=== PATIENT | male | born 1990 | race Caucasian/White ===

== ENCOUNTER → 2018-07-15 10:50 | Outpatient (CLI) | payer OTHER, SELFPAY | PROVIDERS: PCP Family Medicine; Visit Provider Family Medicine | DX: R20.0 Anesthesia of skin (principal) | CPT/HCPCS: 95886; 95911 ==

== ENCOUNTER → 2023-03-28 12:03 | Outpatient (CLI) | payer OTHER, SELFPAY ==
--- NOTE | 2023-03-28 | DI.MRI.S_ITS ---
PROCEDURE: MR LUMBAR SPINE WO CON INDICATIONS: intervertebral disc disorders, lumbar region TECHNIQUE: Noncontrast sagittal T1 spin echo and T2 fast echo, sagittal STIR, and T2 fast spin echo through the lumbar spine. In cases with scoliosis, additional coronal T2 fast spin echo may be performed. COMPARISON: [facility], MR, L-SPINE WITHOUT CONTRAST, 12/08/2017, 18:37. FINDINGS: Image quality: Excellent. Alignment and Curvature: There is normal bony alignment. Bone Marrow: Marrow is of normal overall signal. No acute vertebral body compression fractures. Spinal Cord: Conus medullaris terminates at the L1 level. Visualized cord demonstrates normal signal and size. Paraspinous Soft Tissues: No paravertebral masses. T12-L1: Mild disc desiccation and height loss. Broad-based disc bulge. No canal stenosis. No foraminal stenosis. These findings are unchanged from the study dated December 08, 2017. L1-L2: Mild disc desiccation and height loss. Broad-based disc bulge. No canal stenosis. No foraminal stenosis. Findings are unchanged. L2-L3: Disc height is preserved. No canal stenosis. No foraminal stenosis. Findings are unchanged. L3-L4: Mild disc bulge and mild facet and ligamentum flavum hypertrophy. The previously visualized left paracentral disc bulge is no longer present. There is a small posterior focal high-intensity zone. No canal stenosis. No foraminal stenosis. L4-L5: Mild disc desiccation and height loss. Broad-based disc bulge. Moderate facet ligamentum flavum hypertrophy. No canal stenosis. No foraminal stenosis. There is a small posterior focal high-intensity zone. L5-S1: Mild disc desiccation and height loss. No canal stenosis. Mild right and moderate left foraminal stenosis. These findings are unchanged from the prior study. IMPRESSION: 1. Previously visualized left paracentral L3-4 disc bulge is no longer present. 2. No significant canal stenosis of the lumbar spine. 3. Moderate left L5-S1 foraminal stenosis similar to the prior study. 4. 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 Dictated by: Sheryl Stallings M.D. on 03/30/2023 at 9:11 Approved by: Sheryl Stallings M.D. on 03/30/2023 at 9:36
== END ==
PROVIDERS: PCP Family Medicine; Referring Provider Family Medicine; Visit Provider Family Medicine
DX: M47.26 Other spondylosis with radiculopathy, lumbar region (principal); M48.07 Spinal stenosis, lumbosacral region; R20.2 Paresthesia of skin
CPT/HCPCS: 72148

== ENCOUNTER 2025-07-31 12:49 | Emergency (ER) | payer OTHER, SELFPAY ==
[2025-07-31 13:02] VITALS: BP 175/109; PULSE 89; RESP 14; TEMP 36.4; O2SAT 97; BMI 45.1
--- NOTE | 2025-07-31 13:34 | ED.PEDGIA ---
HPI - Pediatric GI <Marie Soto PA-C - Last Filed: 07/31/25 19:49> General Chief Complaint: Abdominal Pain Stated Complaint: Abd pain after working at [employer] Time Seen by Provider: 07/31/25 13:29 Source: patient Mode of arrival: Ambulatory History of Present Illness HPI narrative: Mr. Dunbar is a pleasant 34-year-old male with a past medical history of hypertension, lumbar herniated disc who presents to the emergency department for epigastric abdominal pain x1 day. Patient states he began a new job yesterday at [employer] that entails a lot of strenuous activity/heavy lifting. Throughout his shift he developed pain in the epigastric area of his abdomen that worsened as the day went on. He knows to in the evening that he had a large bulge in this area and it was very tender. Pain is exacerbated by moving, sitting, going from sitting to standing position. When he woke up this morning, pain was slightly improved but is still present. Pain is also associated with nausea. Patient reports that he has muscle soreness all over his body including his arms, his legs and also has some tightness in his left chest wall. He denies any substernal chest pain, shortness of breath, fevers, chills, vomiting, diarrhea, melena, bloody stool, dysuria, hematuria. No prior abdominal surgeries. Does report some mild straining with bowel movement this morning. Reports a history of alcohol use however over the last 2 years he drinks very infrequently and he also quit smoking 2 months ago. Denies any medication allergies. His PCP is Dr. Talbert, he does not take any antihypertensives. Related Data Home Medications ?Medication ?Instructions ?Recorded ?Confirmed No Known Home Medications 07/31/25 07/31/25 Allergies Allergy/AdvReac Type Severity Reaction Status Date / Time No Known Drug Allergies Allergy Unverified 07/31/25 13:12 Patient History <Marie Soto PA-C - Last Filed: 07/31/25 19:49> Social History Smoking Status: Former smoker Smoking Status: Former smoker Alcohol type: hard liquor Pediatric Exam <Marie Soto PA-C - Last Filed: 07/31/25 19:49> Narrative Physical exam: GENERAL: 34 year old patient appears stated age. Obese patient, in no acute distress. HEAD: Atraumatic. Normocephalic. EYES: No scleral icterus. No injection or drainage. NECK: Trachea midline. Cervical ROM intact. CARDIOVASCULAR: Regular rate and rhythm. RESPIRATORY: ?Nonlabored respirations. ?Speaking in clear, full sentences. ?Clear to auscultation. Breath sounds equal bilaterally. No wheezes, rales, or rhonchi. ? GASTROINTESTINAL: Tenderness to palpation of epigastric region of abdomen, no obvious bulging or hernia palpated. Mild tenderness to palpation of left lower quadrant. No rebound tenderness. Some guarding with deep palpation of epigastrium. Negative Louis's sign, negative McBurney's point tenderness. Bowel sounds present. EXTREMITIES: No LE edema. NEURO: AOx3. ?Clear speech. ?Moves all 4 extremities appropriately. SKIN: No rash or erythema of visible areas Initial Vital Signs Initial Vital Signs: Vital Signs Temperature 97.6 F 07/31/25 13:02 Pulse Rate 89 07/31/25 13:02 Respiratory Rate 14 07/31/25 13:02 Blood Pressure 175/109 H 07/31/25 13:02 Pulse Oximetry 97 07/31/25 13:02 Oxygen Delivery Method Room Air 07/31/25 13:02 <Rafia Hancock DO - Last Filed: 08/01/25 09:42> Initial Vital Signs Initial Vital Signs: Vital Signs Temperature 97.6 F 07/31/25 13:02 Pulse Rate 89 07/31/25 13:02 Respiratory Rate 14 07/31/25 13:02 Blood Pressure 175/109 H 07/31/25 13:02 Pulse Oximetry 97 07/31/25 13:02 Oxygen Delivery Method Room Air 07/31/25 13:02 Course <Marie Soto PA-C - Last Filed: 07/31/25 19:49> Orders Ordered: Discontinued Medications Sodium Chloride (Normal Saline 0.9%) 1,000 mls @ 1,000 mls/hr IV BOLUS ONE Stop: 07/31/25 14:46 Last Infusion: 07/31/25 15:12 Dose: Infused Documented By: Admin: 07/31/25 14:21 Dose: 1,000 mls/hr Documented By: ERICA Sodium Chloride (Normal Saline 0.9%) 1,000 mls @ 1,000 mls/hr IV BOLUS ONE Stop: 07/31/25 15:48 Last Infusion: 07/31/25 16:52 Dose: Infused Documented By: Admin: 07/31/25 15:13 Dose: 1,000 mls/hr Documented By: ERICA Ondansetron HCl (Ondansetron 4 Mg/2 Ml Inj) 4 mg IV NOW ONE Stop: 07/31/25 13:48 Last Admin: 07/31/25 14:21 Dose: 4 mg Documented By: ERICA Pantoprazole Sodium (Pantoprazole 40 Mg Vial) 40 mg IV NOW ONE Stop: 07/31/25 13:48 Last Admin: 07/31/25 14:21 Dose: 40 mg Documented By: ERICA Vital Signs Vital signs: Vital Signs - 8 hr 07/31/25 13:02 07/31/25 15:07 07/31/25 17:54 Temperature 97.6 F Pulse Rate 89 81 89 Respiratory Rate 14 16 12 Blood Pressure 175/109 H 144/87 H 145/97 H Pulse Oximetry 97 98 97 Oxygen Delivery Method Room Air Room Air Room Air 07/31/25 19:34 Temperature 97.7 F Pulse Rate 85 Respiratory Rate 18 Blood Pressure 149/96 H Pulse Oximetry 95 Oxygen Delivery Method Room Air <Rafia Hancock, - Last Filed: 08/01/25 09:42> Orders Ordered: Discontinued Medications Sodium Chloride (Normal Saline 0.9%) 1,000 mls @ 1,000 mls/hr IV BOLUS ONE Stop: 07/31/25 14:46 Last Infusion: 07/31/25 15:12 Dose: Infused Documented By: Admin: 07/31/25 14:21 Dose: 1,000 mls/hr Documented By: ERICA Sodium Chloride (Normal Saline 0.9%) 1,000 mls @ 1,000 mls/hr IV BOLUS ONE Stop: 07/31/25 15:48 Last Infusion: 07/31/25 16:52 Dose: Infused Documented By: Admin: 07/31/25 15:13 Dose: 1,000 mls/hr Documented By: ERICA Ondansetron HCl (Ondansetron 4 Mg/2 Ml Inj) 4 mg IV NOW ONE Stop: 07/31/25 13:48 Last Admin: 07/31/25 14:21 Dose: 4 mg Documented By: ERICA Pantoprazole Sodium (Pantoprazole 40 Mg Vial) 40 mg IV NOW ONE Stop: 07/31/25 13:48 Last Admin: 07/31/25 14:21 Dose: 40 mg Documented By: ERICA Vital Signs Vital signs: Vital Signs - 8 hr 07/31/25 13:02 07/31/25 15:07 07/31/25 17:54 Temperature 97.6 F Pulse Rate 89 81 89 Respiratory Rate 14 16 12 Blood Pressure 175/109 H 144/87 H 145/97 H Pulse Oximetry 97 98 97 Oxygen Delivery Method Room Air Room Air Room Air 07/31/25 19:34 Temperature 97.7 F Pulse Rate 85 Respiratory Rate 18 Blood Pressure 149/96 H Pulse Oximetry 95 Oxygen Delivery Method Room Air Medical Decision Making <Marie Soto PA-C - Last Filed: 07/31/25 19:49> Medical Records Medical records reviewed: Yes I reviewed the patient's medical records. Medical records narrative: Walk-in clinic visit today, was sent to ER Lab Data 07/31/25 14:03 07/31/25 14:03 Labs: Lab Results 07/31/25 07/31/25 Range/Units 14:03 16:58 WBC 6.0 (4.5-11.0) X10^3/uL RBC 4.63 (4.5-5.9) X10^6/uL Hgb 14.1 (13.5-17.5) g/dL Hct 41.6 (41-53) % MCV 89.9 (80-100) fL MCH 30.5 (26-34) PG MCHC 33.9 (30-36) % RDW 13.9 (11.6-14.8) % Plt Count 268 (150-400) X10^3/uL Neut % (Auto) 56.8 (50-75) % Lymph % (Auto) 28.4 (25-40) % Mathews % (Auto) 9.1 (3-14) % Eos % (Auto) 4.5 H (2-4) % Baso % (Auto) 1.2 (0-2) % Neut # (Auto) 3400 (3874-1073) /uL Lymph # (Auto) 1700 (5599-3101) /uL Mathews # (Auto) 500 (0-900) /uL Eos # (Auto) 300 (0-450) /uL Baso # (Auto) 100 (0-100) /uL Sodium 137 (137-145) mmol/L Potassium 3.7 (3.4-5.1) mmol/L Chloride 100 (98-107) mmol/L Carbon Dioxide 26 (22-32) mmol/L BUN 10 (9-20) mg/dL Creatinine 0.67 (0.66-1.25) mg/dL Estimated GFR > 60 (>60) mL/min BUN/Creatinine Ratio 14.9 (6-22) Glucose 94 (70-99) mg/dL Lactate 0.9 (0.7-2.1) mmol/L Calcium 9.1 (8.4-10.2) mg/dL Total Bilirubin 0.8 (0.2-1.3) mg/dL AST 83 H (17-59) IU/L ALT 105 H (<50) IU/L Alkaline Phosphatase 49 (38-126) U/L Total Creatine Kinase 904 H 704 H (55-170) U/L Troponin I < 0.012 (0.01-0.034) ng/mL Total Protein 8.2 (6.3-8.2) g/dL Albumin 4.8 (3.5-5.0) g/dL Globulin 3.4 (1.7-4.1) g/dL Albumin/Globulin Ratio 1.4 (1.0-2.8) Lipase 93 (23-300) U/L Urine Color Yellow Urine Appearance Clear Urine pH 6.0 (4.5-8.0) Ur Specific [place] 1.020 (1.000-1.035) Urine Protein Negative (Negative) Urine Glucose (UA) Negative (Negative) g/dL Urine Ketones 1+ H (NEGATIVE) Urine Occult Blood 1+ H (Negative) Urine Nitrate Negative (Negative) Urine Bilirubin Negative (NEGATIVE) Urine Urobilinogen 0.2 (0.2) E.U./dL Ur Leukocyte Esterase Negative (NEGATIVE) Urine RBC 1-5/hpf (0-5/HPF) Urine WBC None seen (0-5/HPF) Ur Squamous Epith Cells None seen (0-5/HPF) Urine Bacteria None seen (None) Ur Culture Indicated? Cult not indicated Vol Urine Centrifuged 10ml (spun) Imaging Data CT scan - abdomen/pelvis: Radiologist's Impression: PROCEDURE: CT ABDOMEN PELVIS W CON INDICATIONS: epigastric abd pain; concern hernia TECHNIQUE: After the administration of intravenous contrast, axial sections acquired from the lung bases to the pubic symphysis. Coronal and sagittal reformats were performed. For radiation dose reduction, the following was used: automated exposure control, adjustment of mA and/or kV according to patient size. COMPARISON: None. FINDINGS: Image quality: Diagnostic. Lower Chest: No significant findings. ABDOMEN: Liver: No solid mass. Moderate diffuse hepatic steatosis. Gallbladder: No radiopaque gallstones or wall thickening. Biliary ducts: No biliary dilation. Pancreas: No ductal dilation. Spleen: Size is within normal limits. Adrenal Glands: No adrenal nodules. Kidneys and Ureters: No hydronephrosis. No solid mass. No complex renal cystic lesion which requires follow up. Stomach and Bowel: Normal colonic caliber, without significant wall thickening. Sigmoid diverticulosis. Normal appendix. Peritoneum: No abnormal intraperitoneal fluid. No free air. Ventral Wall: No significant ventral hernia. Abdominal Nodes: No retroperitoneal or mesenteric adenopathy by size criteria. Vessels: Aorta and inferior vena cava are normal in size. PELVIS: Pelvic Organs: Unremarkable. Bladder: No bladder wall thickening, accounting for underdistention. Pelvic Nodes: No enlarged lymph nodes. Miscellaneous: No inguinal hernias are seen. Bones: No aggressive osseous abnormality. IMPRESSION: Moderate diffuse hepatic steatosis. No acute abdominal process. Sigmoid diverticulosis. Dictated by: Rajesh José M.D. on 07/31/2025 at 15:16 Approved by: Rajesh José M.D. on 07/31/2025 at 15:18 [facility] Narrative Medical decision making narrative: 34-year-old male with a past medical history of hypertension, lumbar herniated disc who presents to the emergency department for epigastric abdominal pain x1 day. Differential diagnosis includes but is not limited to hiatal hernia, supraumbilical hernia, cholecystitis, diverticulitis, colitis, gastritis or pancreatitis, abdominal wall muscle strain, sprain, diastasis recti, ACS, etc. On exam the patient is in no acute distress, nontoxic-appearing, all vital signs within normal limits except for elevated blood pressure of 175/109 in triage. Patient does have history of hypertension, does not take any medications. He has epigastric tenderness to palpation, reports large bulge in the abdomen last night that has since resolved with lying down and icing. No history of prior abdominal surgeries. He is also experiencing some chest wall soreness he reports since yesterday. Will obtain CBC, CMP, lipase, troponin, EKG, treat with fluids, Protonix, Zofran and obtain CT abdomen pelvis with IV contrast for further evaluation of abdominal pain. ECG reveals a rate of 80 beats per minute, QTC 447, regular rhythm. T wave inversions III, aVF. No prior EKG for comparison. Reviewed with Dr. Hancock. Labs reveal elevated CK 905, likely result of extreme muscle use yesterday while lifting at work. Negative/undetectable troponin. Elevated AST 83 ALT 105 however no baseline for comparison. Normal lactate 0.9. Normal renal function BUN 10 creatinine 0.67. Normal WBC count 6.0, hemoglobin 14.1 hematocrit 41.6. Sodium 137, potassium 3.7, glucose 94. Normal lipase 93. UA with 1+ ketones, 1+ blood, 1-5 RBCs. We will treat patient with second L of IV fluids. Patient's symptoms improved significantly. CT abdomen and pelvis reveals moderate diffuse hepatic steatosis, no acute abdominal process, sigmoid diverticulosis. Printed discussed all results with the patient. Recommended rest, avoid strenuous activity for the next week, increase hydration, follow up with PCP. Provided patient with L and I paperwork and work note. Discussed strict ED return precautions. Patient verbalized understanding of all information agreeable with the plan. He is stable for discharge home. <Rafia Hancock, DO - Last Filed: 08/01/25 09:42> Lab Data Labs: Lab Results 07/31/25 07/31/25 Range/Units 14:03 16:58 WBC 6.0 (4.5-11.0) X10^3/uL RBC 4.63 (4.5-5.9) X10^6/uL Hgb 14.1 (13.5-17.5) g/dL Hct 41.6 (41-53) % MCV 89.9 (80-100) fL MCH 30.5 (26-34) PG MCHC 33.9 (30-36) % RDW 13.9 (11.6-14.8) % Plt Count 268 (150-400) X10^3/uL Neut % (Auto) 56.8 (50-75) % Lymph % (Auto) 28.4 (25-40) % Mathews % (Auto) 9.1 (3-14) % Eos % (Auto) 4.5 H (2-4) % Baso % (Auto) 1.2 (0-2) % Neut # (Auto) 3400 (2230-7136) /uL Lymph # (Auto) 1700 (6741-2477) /uL Mathews # (Auto) 500 (0-900) /uL Eos # (Auto) 300 (0-450) /uL Baso # (Auto) 100 (0-100) /uL Sodium 137 (137-145) mmol/L Potassium 3.7 (3.4-5.1) mmol/L Chloride 100 (98-107) mmol/L Carbon Dioxide 26 (22-32) mmol/L BUN 10 (9-20) mg/dL Creatinine 0.67 (0.66-1.25) mg/dL Estimated GFR > 60 (>60) mL/min BUN/Creatinine Ratio 14.9 (6-22) Glucose 94 (70-99) mg/dL Lactate 0.9 (0.7-2.1) mmol/L Calcium 9.1 (8.4-10.2) mg/dL Total Bilirubin 0.8 (0.2-1.3) mg/dL AST 83 H (17-59) IU/L ALT 105 H (<50) IU/L Alkaline Phosphatase 49 (38-126) U/L Total Creatine Kinase 904 H 704 H (55-170) U/L Troponin I < 0.012 (0.01-0.034) ng/mL Total Protein 8.2 (6.3-8.2) g/dL Albumin 4.8 (3.5-5.0) g/dL Globulin 3.4 (1.7-4.1) g/dL Albumin/Globulin Ratio 1.4 (1.0-2.8) Lipase 93 (23-300) U/L Urine Color Yellow Urine Appearance Clear Urine pH 6.0 (4.5-8.0) Ur Specific [place] 1.020 (1.000-1.035) Urine Protein Negative (Negative) Urine Glucose (UA) Negative (Negative) g/dL Urine Ketones 1+ H (NEGATIVE) Urine Occult Blood 1+ H (Negative) Urine Nitrate Negative (Negative) Urine Bilirubin Negative (NEGATIVE) Urine Urobilinogen 0.2 (0.2) E.U./dL Ur Leukocyte Esterase Negative (NEGATIVE) Urine RBC 1-5/hpf (0-5/HPF) Urine WBC None seen (0-5/HPF) Ur Squamous Epith Cells None seen (0-5/HPF) Urine Bacteria None seen (None) Ur Culture Indicated? Cult not indicated Vol Urine Centrifuged 10ml (spun) Discharge Plan Departure Patient Disposition: Home Clinical Impression: Elevated CK, Myalgia, Hepatic steatosis, Diverticulosis Instructions: Abdominal Muscle Strain Activity Restrictions/Additional Instructions: Dear Mr. Dunbar, Thank you for coming to the emergency department. Today you were evaluated for abdominal pain. Your workup did not reveal a hernia or any intra-abdominal abnormality except chronic findings which we discussed, however your CK level was quite elevated which is a result of muscle damage from strenuous exercise. Please rest, increase hydration with water, and follow up with your primary care doctor for further evaluation. Please follow up with your primary care doctor within the next 2-3 days for ER follow-up. (If you do not have a PCP you can call [phone]. ?to schedule an appointment with an [facility] Primary Care Provider) IF YOU DEVELOP ANY NEW OR WORSENING SYMPTOMS, RETURN TO THE ER! Please read the attached instructions, they highlight more specific treatments and interventions for you at home. Thank you for letting me participate in your care, Marie Soto PA-C Prescriptions: No Action No Known Home Medications Referrals: Mio Talbert MD [Primary Care Provider, Family Practice] Stand Alone Forms: Patient Portal/API, Work Release Note ED Sign-out <Rafia Hancock, - Last Filed: 08/01/25 09:42> Cosign ED Attending [place] Attestation: I was available for consultation.
--- NOTE | 2025-07-31 13:47 | EKG_ITS ---
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
--- NOTE | 2025-07-31 13:48 | DI.CT.S_ITS ---
PROCEDURE: CT ABDOMEN PELVIS W CON INDICATIONS: epigastric abd pain; concern hernia TECHNIQUE: After the administration of intravenous contrast, axial sections acquired from the lung bases to the pubic symphysis. Coronal and sagittal reformats were performed. For radiation dose reduction, the following was used: automated exposure control, adjustment of mA and/or kV according to patient size. COMPARISON: None. FINDINGS: Image quality: Diagnostic. Lower Chest: No significant findings. ABDOMEN: Liver: No solid mass. Moderate diffuse hepatic steatosis. Gallbladder: No radiopaque gallstones or wall thickening. Biliary ducts: No biliary dilation. Pancreas: No ductal dilation. Spleen: Size is within normal limits. Adrenal Glands: No adrenal nodules. Kidneys and Ureters: No hydronephrosis. No solid mass. No complex renal cystic lesion which requires follow up. Stomach and Bowel: Normal colonic caliber, without significant wall thickening. Sigmoid diverticulosis. Normal appendix. Peritoneum: No abnormal intraperitoneal fluid. No free air. Ventral Wall: No significant ventral hernia. Abdominal Nodes: No retroperitoneal or mesenteric adenopathy by size criteria. Vessels: Aorta and inferior vena cava are normal in size. PELVIS: Pelvic Organs: Unremarkable. Bladder: No bladder wall thickening, accounting for underdistention. Pelvic Nodes: No enlarged lymph nodes. Miscellaneous: No inguinal hernias are seen. Bones: No aggressive osseous abnormality. IMPRESSION: Moderate diffuse hepatic steatosis. No acute abdominal process. Sigmoid diverticulosis. Dictated by: Rajesh José M.D. on 07/31/2025 at 15:16 Approved by: Rajesh José M.D. on 07/31/2025 at 15:18
[2025-07-31 14:12] LABS: Add Manual Diff / Slide Review NO; Hematocrit 41.6 % (41-53); Hemoglobin 14.1 g/dL (13.5-17.5); Lymphocytes Absolute Auto 1700 /uL (1100-4500); Mean Corpuscular HGB Conc 33.9 % (30-36); Mean Corpuscular Hemoglobin 30.5 PG (26-34); Mean Corpuscular Volume 89.9 fL (80-100); Platelet Count 268 X10^3/uL (150-400)
[2025-07-31] MEDS: SODIUM CHLORIDE 0.9% 1,000 ML 1000 ML IV ×2 (14:21→15:13)
[2025-07-31] MEDS: ONDANSETRON 4 MG/2 ML INJ IV (14:21)
[2025-07-31] MEDS: PANTOPRAZOLE 40 MG VIAL IV (14:21)
[2025-07-31 14:22] LABS: Appearance Urine UA CLEAR; Bilirubin Urine UA NEGATIVE (NEGATIVE); Color Urine UA YELLOW; Glucose Urine UA NEGATIVE (Negative); Ketones Urine UA 1+ (NEGATIVE); Lactate (Lactic Acid) 0.9 mmol/L (0.7-2.1); Leukocyte Esterase Urine UA NEGATIVE (NEGATIVE); Nitrite Urine UA NEGATIVE (Negative); Occult Blood Urine UA 1+ (Negative); Protein Urine UA NEGATIVE (Negative); Specific Gravity Urine UA 1.020 (1.000-1.035); Urobilinogen Urine UA 0.2 E.U./dL (0.2); pH Urine UA 6.0 (4.5-8.0)
[2025-07-31 14:23] LABS: Alanine Aminotransferase 105 IU/L (<50); Albumin 4.8 g/dL (3.5-5.0); Albumin Globulin Ratio 1.4 (1.0-2.8); Alkaline Phosphatase 49 U/L (38-126); Blood Urea Nitrogen 10 mg/dL (9-20); Calcium 9.1 mg/dL (8.4-10.2); Carbon Dioxide 26 mmol/L (22-32); Chloride 100 mmol/L (98-107); Creatine Kinase 904 U/L (55-170); Estimated Glomerular Filt Rate > 60 mL/min (>60); Globulin 3.4 g/dL (1.7-4.1); Glucose 94 mg/dL (70-99); HEMOLYSIS < 15 (0-50); Lipase 93 U/L (23-300); Potassium 3.7 mmol/L (3.4-5.1); Sodium 137 mmol/L (137-145); Total Protein 8.2 g/dL (6.3-8.2)
[2025-07-31 14:26] LABS: Culture Indicated Urine Cult Not Indicated
[2025-07-31 14:34] LABS: Troponin I < 0.012 ng/mL (0.01-0.034)
[2025-07-31 15:07] VITALS: BP 144/87; PULSE 81; RESP 16; O2SAT 98
[2025-07-31 17:21] LABS: Creatine Kinase 704 U/L (55-170)
[2025-07-31 17:54] VITALS: BP 145/97; PULSE 89; RESP 12; O2SAT 97
[2025-07-31 19:34] VITALS: BP 149/96; PULSE 85; RESP 18; TEMP 36.5; O2SAT 95
== END 2025-07-31 19:22 | disposition home or self-care (01) ==
PROVIDERS: Emergency Provider Physician Assistant; PCP Family Medicine
DX: K57.90 Diverticulosis of intestine, part unspecified, without perforation or abscess without bleeding (principal); K76.0 Fatty (change of) liver, not elsewhere classified; M79.10 Myalgia, unspecified site; R74.8 Abnormal levels of other serum enzymes
CPT/HCPCS: 36415; 74177; 80053; 81001; 82550; 83605; 83690; 84484; 85025; 93005; 93010; 96361; 96374; 96375; 99284; J2405; J2470; Q9967